=== PATIENT | male | born 1945 | race Asian ===

== ENCOUNTER → 2018-11-16 10:29 | Outpatient (CLI) | payer OTHER ==
[2018-11-16 11:31] LABS: ALKALINE PHOSPHATASE 107 U/L (46-116); ALT (SGPT) 68 U/L (10-68); BILIRUBIN - TOTAL 0.94 mg/dL (0.2-1.3); CALC OSMOLALITY 280 mosm/kg (275-300); CALCIUM 9.2 mg/dL (8.5-10.1); CARBON DIOXIDE 31.5 mmol/L (21.0-32.0); CHLORIDE - SERUM 104 mmol/L (98-107); GLUCOSE 104 mg/dL (74-106); POTASSIUM - SERUM 4.7 mmol/L (3.5-5.1); PROTEIN - SERUM 7.3 g/dL (6.4-8.2); SODIUM 140 mmol/L (136-145); UREA NITROGEN 18 mg/dL (7-18); eGFR NON AFRICAN AMERICAN 78 mL/min (90-120)
== END | disposition home or self-care (01) ==
LOC: D.LAB 10:29
PROVIDERS: ATTEND Urology
DX: N40.0 Benign prostatic hyperplasia without lower urinary tract symptoms (principal)

== ENCOUNTER 2018-12-22 07:20 | Day surgery (SDC) | payer OTHER ==
[2018-12-20 10:58] LABS: HEMATOCRIT 42.2 % (42.0-54.0); HEMOGLOBIN 14.7 g/dL (13.5-17.5); MCH 31.3 pg (26.0-34.0); MCHC 34.8 g/dL (31.0-37.0); MEAN PLATELET VOLUME 9.7 fL (7.4-10.4); RBC 4.69 10x6/uL (4.20-6.10); RDW 12.8 % (11.5-14.5); WBC 4.1 10x3/uL (4.8-10.8)
[2018-12-20 11:05] LABS: INR 1.07 (0.85-1.17); PROTIME 13.4 SECONDS (11.6-15.0)
[2018-12-20 11:07] LABS: ALBUMIN 3.7 g/dL (3.4-5.0); ALKALINE PHOSPHATASE 91 U/L (46-116); ALT (SGPT) 47 U/L (10-68); BILIRUBIN - TOTAL 0.77 mg/dL (0.2-1.3); CALC OSMOLALITY 279 mosm/kg (275-300); CALCIUM 8.7 mg/dL (8.5-10.1); CARBON DIOXIDE 28.5 mmol/L (21.0-32.0); CHLORIDE - SERUM 105 mmol/L (98-107); CREATININE - SERUM 0.9 mg/dL (0.6-1.3); GLUCOSE 93 mg/dL (74-106); PROTEIN - SERUM 7.3 g/dL (6.4-8.2); SODIUM 139 mmol/L (136-145); UREA NITROGEN 17 mg/dL (7-18); eGFR NON AFRICAN AMERICAN 88 mL/min (90-120)
[~2018-12-22] VITALS: Ht 170.2 cm; Wt 67.1 kg
[2018-12-22 07:42] VITALS: BP 104/65; Ht 170.2 cm; Wt 67.1 kg
--- NOTE | 2018-12-22 11:11 | NUR ---
PT REQUESTS URINAL. PROVIDED
--- NOTE | 2018-12-22 11:55 | OP ---
PATIENT NAME: MIS JUDGE MEDICAL RECORD: [id number] :49 LOCATION:[facility] ADMISSION DATE: SURGEON: JOHNATHAN RAMOS MD DATE OF OPERATION: 12/22/2018 SURGEON: Johnathan Ramos MD ANESTHESIA: TIVA by Дмитрий Araujo CRNA. PROCEDURE: Cystoscopy, bladder tumor biopsy, transrectal ultrasound (TRUS), and prostate biopsies. DIAGNOSIS: Elevated PSA of 7.36, bladder tumor, bladder outlet obstruction. SPECIMENS: 1. Bladder tumor. 2. Prostate biopsy cores. FINDINGS: On cystoscopy, bilateral lateral lobe obstruction of the prostate with no median lobe. Small papillary bladder tumor located at the bladder neck. Single ureteral orifices bilaterally with a trabeculated bladder. On transrectal ultrasound 34 gram prostate. BLOOD LOSS: None. CLINICAL HISTORY: This is a 73-year-old male, who has voiding symptoms of bladder outlet obstruction. His IPSS score is 29 and quality of life score is 6. He has been on tamsulosin, which is not helping him. As part of his workup, he had a PSA obtained and this was elevated at 7.36. He comes today for cystoscopy and prostate biopsy. If the prostate biopsy is benign, then he will proceed with UroLift procedure in the near future. He is not allergic to any medication. He was given [employer] information security to the OR. DESCRIPTION OF PROCEDURE: The patient was given IV sedation. He was then placed in the lithotomy position and prepped and draped. A 17-Ugandan cystoscope with 30-degree lens was used for visualization. The penile urethra shows no strictures. The prostatic urethra shows obstructive bilateral lateral lobes. There is no median lobe. Right at the bladder neck, just slightly to the left of the midline, is a small papillary tumor. Going into the bladder, there are single ureteral orifices on both sides. There is a trabeculated bladder, but no other bladder tumors were seen. I switched to the 21-Ugandan cystoscope and using flexible grasping forceps, the bladder tumor was entirely removed. The bladder was then emptied through the cystoscope sheath and the scope was removed. We then introduced the transrectal ultrasound probe. Prostate size measurements were obtained and we obtained a size estimate of 34 grams. Sextant biopsies were then obtained with at least 3 cores from each sextant. Once all the specimens were obtained, the procedure was terminated. The patient will be going home today. I will see him in followup next week to review the pathology results with him. TRANSINT:[id number] Voice Confirmation ID: [id number] DOCUMENT ID: [id number] OPERATIVE REPORT [id number] MIS JUDGE ROBERT S MD at 1155 CC: [id number] DICTATION DATE: 12/22/18 1104 PRODUCT INTRODUCTION MANAGER: 12/22/18 1116 [facility] [place] [id number]
--- NOTE | 2018-12-22 13:19 | NUR ---
1300- ABLE TO AMBULATE AND URINATE WITHOUT DIFFICULTIES. DISCONTINUED IV FROM LEFT HAND WITH CATH INTACT,DISPOSED INTO SHARPS. TOLERATED WELL COVERED WITH BANDAID. REVIEWED DISCHARGE INSTRUCTIONS, COPY IN HAND. VERBALIZED UNDERSTANDING WITHOUT QUESTIONS OR CONCERNS. ESCORTED OUT VIA W/C BY OPS STAFF TO [facility].
== END 2018-12-22 13:00 | disposition home or self-care (01) ==
LOC: D.OPS 07:20
PROVIDERS: Anesthesiology; ATTEND Urology
DX: C61 Malignant neoplasm of prostate (principal); N32.0 Bladder-neck obstruction; Z01.812 Encounter for preprocedural laboratory examination

== ENCOUNTER 2019-02-26 10:29 | Emergency (ER) | payer OTHER ==
[~2019-02-26] VITALS: Ht 170.2 cm; Wt 65.9 kg
[2019-02-26 10:31] VITALS: BP 144/96; Ht 170.2 cm; Wt 65.9 kg
[2019-02-26 11:32] LABS: APPEARANCE CLOUDY (CLEAR); BILIRUBIN NEGATIVE (NEGATIVE); GLUCOSE NEGATIVE (NEGATIVE); KETONE NEGATIVE (NEGATIVE); NITRITE NEGATIVE (NEGATIVE); PROTEIN 1+ mg/dL (NEGATIVE); UROBILINOGEN NORMAL (NORMAL)
[2019-02-26 11:34] LABS: BACTERIA MODERATE /hpf (NEGATIVE); RED CELLS - URINE 25-50 /hpf (0-5); WHITE CELLS - URINE 0-5 /hpf (NEGATIVE)
== END 2019-02-26 12:11 | disposition home or self-care (01) ==
LOC: D.ER 10:29
PROVIDERS: Emergency Medicine
DX: Z46.82 Encounter for fitting and adjustment of non-vascular catheter (principal)